=== PATIENT | female | born 1945 | race Caucasian/White ===

== ENCOUNTER → 2019-12-02 | Outpatient (CLI) | payer MEDICARE, OTHER | END | disposition home or self-care (01) | LOC: RADMRIMAIN 16:12 | PROVIDERS: ATTEND Neurological Surgery | DX: Z53.9 Procedure and treatment not carried out, unspecified reason (principal) ==

== ENCOUNTER → 2019-12-04 | Outpatient (CLI) | payer MEDICARE, OTHER ==
--- NOTE | 2019-12-06 08:54 | MR ---
EXAMINATION TYPE: MR pituitary wo/w con DATE OF EXAM: 12/04/2019 COMPARISON: NONE HISTORY: Neoplasm of pituitary, pituitary microadenoma per order. History of 2 prior pituitary tumor removal surgeries per patient. TECHNIQUE: Multiplanar, multisequence images of the brain and brainstem is performed without and with IV contras t, utilizing 9 mL intravenous Gadavist . Exam is performed under pituitary gland protocol. FINDINGS: Stalk of pituitary shows left-sided deviation coronal image 11, homogeneous enhancement is noted. Suprasellar cistern is maintained on current study. Optic chiasm is not effaced. There is perh aps minimal curvilinear enhancing residual pituitary in the sella turcica on sagittal and coronal jt ges. No suspicious areas of lobular enhancement to suggest recurrent neoplasm. No definitive areas of nonenhancement. No gross hydrocephalus. Craniocervical junction appears within normal limits. IMPRESSION: As above. No convincing evidence for recurrent pituitary macroadenoma. When outside MRI becomes available an addendum will be issued.
== END | disposition home or self-care (01) ==
LOC: RADMRIMAIN 06:16
PROVIDERS: ATTEND Neurological Surgery
DX: D35.2 Benign neoplasm of pituitary gland (principal); Z88.2 Allergy status to sulfonamides; Z88.6 Allergy status to analgesic agent
CPT/HCPCS: 70553; A9585